=== PATIENT | male | born 1975 | race Caucasian/White ===

== ENCOUNTER → 2023-05-03 | Emergency (ER) | payer OTHER ==
[~2023-05-03] MED LIST: ACETAMINOPHEN 500 MG TAB ONE; HYDROCODONE/CHLORPHEN 5 ML/OSYR ONE
[2023-05-03 20:30] LABS: SARS-CoV-2 Antigen Rapid Res Negative (Negative)
--- NOTE | 2023-05-03 20:54 | RAD REPORT ---
EXAM DESCRIPTION: RAD - Chest Pa And Lat (2 Views) - 05/03/2023 8:47 pm CLINICAL HISTORY: Chest pain;Congestion;Cough COMPARISON: No comparisons FINDINGS: Lines: None. Lungs: No evidence of edema or pneumonia. Pleural: No significant pleural effusions or pneumothorax. Cardiac: The heart size is within normal limits. Mediastinum: Within normal limits. Bones: No acute fractures. Other: None IMPRESSION: No acute cardiopulmonary disease.
--- NOTE | 2023-05-03 21:19 | EDPHYS ---
Physician Documentation [facility] Name: Mo Cortez Age: 47 yrs Sex: Male : 1975 Arrival Date: 05/03/2023 Time: 19:20 Bed 12 Private MD: ED Physician Cosmo Kwok HPI: 05/03 20:24 This 47 yrs old Male presents to ER via Ambulatory with complaints of cough, back pain. sb4 20:28 low back pain x 1 week, productive cough x 3 days. no know fever. no GI symptoms. sb4 family with similar symptoms. taking OTC cold medications without significant relief. Historical: - Allergies: 19:30 Flexeril; rv - PMHx: 19:30 Hypertensive disorder; Diabetes mellitus; rv - PSHx: 19:30 BACK SURGERY; rv - Immunization history:: Adult Immunizations up to date. - Social history:: Smoking status: Patient reports the use of cigarette tobacco products, smokes one pack cigarettes per day. ROS: 20:28 Constitutional: Negative for fever, chills, and weight loss, sb4 20:28 Respiratory: Positive for cough, with yellow sputum, 20:28 Back: Positive for pain at rest, of the lumbar area, 20:28 All other systems are negative, Exam: 20:28 Constitutional: This is a well developed, well nourished patient who is awake, alert, sb4 and in no acute distress. Head/Face: Normocephalic, atraumatic. Eyes: Extra-ocular motions intact. Periorbital areas with no swelling, redness, or edema. ENT: Mucous membranes moist. Abdomen/GI: Soft, non-tender, no distension. Skin: Warm, dry with normal turgor. Normal color with no rashes, no lesions, and no evidence of cellulitis. MS/ Extremity: Pulses equal, no cyanosis. Neurovascular intact. Full, normal range of motion. Neuro: Awake and alert, GCS 15, oriented to person, place, time, and situation. Motor strength 5/5 in all extremities. Sensory grossly intact. 20:28 Cardiovascular: Rate: tachycardic, Rhythm: regular, Pulses: no pulse deficits are appreciated, 20:28 Respiratory: the patient does not display signs of respiratory distress, Respirations: normal, Breath sounds: no acute changes, deep breath elicits cough, Vital Signs: 19:29 BP 139 / 104; Pulse 109; Resp 19; Temp 98.5; Pulse Ox 100% ; Weight 97.52 kg; Height 6 rv ft. 1 in. ; 21:08 BP 117 / 87; Pulse 96; Resp 19; Temp 98.6; Pulse Ox 99% ; rv 19:29 Body Mass Index 28.37 (97.52 kg, 185.42 cm) rv Michelle Coma Score: 21:08 Eye Response: spontaneous(4). Motor Response: obeys commands(6). Verbal Response: rv oriented(5). Total: 15. MDM: 19:35 Patient medically screened. sb4 20:28 Differential Diagnosis: Bronchitis Influenza Upper Respiratory Infection Sinusitis sb4 Pneumonia. 21:34 Data reviewed: vital signs, nurses notes, lab test result(s), radiologic studies, and sb4 as a result, I will discharge patient. Care significantly affected by the following chronic conditions: Diabetes, Hypertension. Counseling: I had a detailed discussion with the patient and/or guardian regarding the historical points, exam findings, and any diagnostic results supporting the discharge/admit diagnosis, lab results, radiology results, to return to the emergency department if symptoms worsen or persist or if there are any questions or concerns that arise at home. 05/03 19:54 Order name: SARS RAPID; Complete Time: 20:32 sb4 05/03 19:54 Order name: Flu; Complete Time: 20:32 sb4 05/03 19:54 Order name: Chest Pa And Lat (2 Views) XRAY; Complete Time: 21:12 sb4 Administered Medications: 20:01 Drug: Tussionex Pennkinetic ER PO Suspension 5 ml PO once Route: PO; tm6 21:09 Follow up: Response: No adverse reaction rv 21:20 Drug: Acetaminophen PO 1000 mg PO once Route: PO; pf1 21:25 Follow up: Response: No adverse reaction; Marked relief of symptoms pf1 Disposition Summary: 05/03/23 21:18 Discharge Ordered Notes: Location: Home sb4 Problem: new sb4 Symptoms: have improved sb4 Condition: Stable sb4 Diagnosis - Acute bronchitis, unspecified sb4 Followup: sb4 - With: Emergency Department - When: As needed - Reason: Trouble breathing, Worsening of condition Discharge Instructions: - Discharge Summary Sheet sb4 - Acute Bronchitis, Adult sb4 Forms: - Thank You Letter sb4 - Prescription Opioid Use sb4 - Patient Portal Instructions sb4 - Leadership Thank You Letter sb4 Prescriptions: - Tessalon Perles 100 mg Oral Capsule - take 1 capsule ORAL route every 8 hours As needed; 15 capsule; Refills: 0, sb4 Product Selection Permitted - Prednisone 20 mg Oral Tablet - take 1 tablet ORAL route every 12 hours for 5 days; 10 tablet; Refills: 0, sb4 Product Selection Permitted Signatures: Dispatcher [employer] EDOK Primo Vidal, RN RN Belkis Jacobson PAAntonioC PA-C sb4 Jenniffer Holloway RN RN pf1 Lui Baker RN RN tm6
--- NOTE | 2023-05-03 21:19 | ER ---
Nurse's Notes [facility] Name: Mo Cortez Age: 47 yrs Sex: Male : 1975 Arrival Date: 05/03/2023 Time: 19:20 Bed 12 Private MD: Diagnosis: Acute bronchitis, unspecified Presentation: 05/03 19:29 Chief complaint: Patient states: cough, congestion, chills, pain started 2-3 days ago. rv denies N/V/D/C. persistent coughing making chronic back pain worse. Coronavirus screen: Client presents with at least one sign or symptom that may indicate coronavirus-19. Standard/surgical mask placed on the client. Provider contacted for isolation considerations. Ebola Screen: No symptoms or risks identified at this time. Initial Sepsis Screen: Does the patient meet any 2 criteria? No. Patient's initial sepsis screen is negative. Does the patient have a suspected source of infection? No. Patient's initial sepsis screen is negative. Risk Assessment: Do you want to hurt yourself or someone else? Patient reports no desire to harm self or others. Onset of symptoms was May 03, 2023. 19:29 Method Of Arrival: Ambulatory rv 19:29 Acuity: VIOLETTE 4 rv Triage Assessment: 19:32 General: Appears uncomfortable, Behavior is calm, cooperative. Pain: Complains of pain rv in back. Neuro: Level of Consciousness is awake, alert, obeys commands, Oriented to person, place, time, situation. Cardiovascular: Capillary refill < 3 seconds Patient's skin is warm and dry. Respiratory: Reports cough that is persistent Airway is patent Respiratory effort is even, unlabored. GI: No signs and/or symptoms were reported involving the gastrointestinal system. : No signs and/or symptoms were reported regarding the genitourinary system. Derm: Skin is intact. Historical: - Allergies: 19:30 Flexeril; rv - PMHx: 19:30 Hypertensive disorder; Diabetes mellitus; rv - PSHx: 19:30 BACK SURGERY; rv - Immunization history:: Adult Immunizations up to date. - Social history:: Smoking status: Patient reports the use of cigarette tobacco products, smokes one pack cigarettes per day. Screenin:32 [facility] ED Fall Risk Assessment (Adult) History of falling in the last 3 months, rv including since admission No falls in past 3 months (0 pts) Score/Fall Risk Level 0 - 2 = Low Risk Oriented to surroundings, Maintained a safe environment, Educated pt \T\ family on fall prevention, incl call for assistance when getting out of bed, Assessed \T\ reinforced patient's understanding of fall precautions. Abuse screen: Denies threats or abuse. Denies injuries from another. Nutritional screening: No deficits noted. Tuberculosis screening: No symptoms or risk factors identified. Assessment: 19:43 General: Appears uncomfortable, Behavior is calm, cooperative. Pain: Complains of pain tm6 in lumbar area, left low back and right low back Pain currently is 8 out of 10 on a pain scale. Quality of pain is described as sharp. Neuro: Level of Consciousness is awake, alert, obeys commands, Oriented to person, place, time, situation. Cardiovascular: Capillary refill < 3 seconds Patient's skin is warm and dry. Respiratory: Reports cough that is non-productive, pain with cough Airway is patent Respiratory effort is even, unlabored, Respiratory pattern is regular, symmetrical. GI: Abdomen is flat, non-distended. : No signs and/or symptoms were reported regarding the genitourinary system. EENT: Reports nasal congestion. Derm: No signs and/or symptoms reported regarding the dermatologic system. Musculoskeletal: Reports pain in back. Vital Signs: 19:29 BP 139 / 104; Pulse 109; Resp 19; Temp 98.5; Pulse Ox 100% ; Weight 97.52 kg; Height 6 rv ft. 1 in. ; 21:08 BP 117 / 87; Pulse 96; Resp 19; Temp 98.6; Pulse Ox 99% ; rv 19:29 Body Mass Index 28.37 (97.52 kg, 185.42 cm) rv Michelle Coma Score: 21:08 Eye Response: spontaneous(4). Motor Response: obeys commands(6). Verbal Response: rv oriented(5). Total: 15. ED Course: 19:24 Patient arrived in ED. gm2 19:25 Belkis Lynn PA-C is PHCP. sb4 19:25 Cosmo Kwok MD is Attending Physician. sb4 19:30 Triage completed. rv 19:32 Arm band placed on right wrist. rv 19:32 Patient has correct armband on for positive identification. Client placed on continuous rv cardiac and pulse oximetry monitoring. NIBP monitoring applied. 19:32 No provider procedures requiring assistance completed. rv 19:43 Provided Education on: plan of care. Door closed. Noise minimized. Lights dimmed. Warm tm6 blanket given. 19:55 Lui Baker, RN is Primary Nurse. tm6 20:01 Flu Sent. tm6 20:01 SARS RAPID Sent. tm6 20:48 Chest Pa And Lat (2 Views) XRAY In Process Unspecified. EDMS 21:26 Patient did not have IV access during this emergency room visit. rv Administered Medications: 20:01 Drug: Tussionex Pennkinetic ER PO Suspension 5 ml PO once Route: PO; tm6 21:09 Follow up: Response: No adverse reaction rv 21:20 Drug: Acetaminophen PO 1000 mg PO once Route: PO; pf1 21:25 Follow up: Response: No adverse reaction; Marked relief of symptoms pf1 Medication: 19:32 VIS not applicable for this client. rv Outcome: 21:18 Discharge ordered by MD. sb4 21:26 Discharged to home ambulatory, rv 21:26 Condition: good 21:26 Discharge instructions given to patient, Instructed on discharge instructions, follow up and referral plans. Demonstrated understanding of instructions, follow-up care, medications, Prescriptions given X 2, 21:26 Patient left the ED. rv Signatures: Dispatcher [employer] EDNV Primo Vidal RN RN rv Belkis Lynn, PA-C PA-C sb4 Jenniffer Holloway RN RN pf1 Allie Barrientos gm2 Lui Baker, RN RN tm6 Corrections: (The following items were deleted from the chart) 19:32 19:29 Chief complaint: Patient states: cough, congestion, chills, pain started 2-3 days rv ago. denies N/V/D/C. rv
[2023-05-03 21:39] VITALS: BP 117/87; TEMP 98.6; O2SAT 99
== END ==
LOC: ER 19:20
DX: J20.9 Acute bronchitis, unspecified (principal); Z11.52 Encounter for screening for COVID-19; F17.210 Nicotine dependence, cigarettes, uncomplicated; Z88.8 Allergy status to other drugs, medicaments and biological substances
CPT/HCPCS: 36415; 71046; 87804; 87811; 99284

== ENCOUNTER 2024-04-27 13:14 | Emergency (ER) | payer OTHER ==
[2024-04-27] MEDS ORDERED: DIPHENHYDRAMINE 50 MG/ML VIAL ONE (13:49)
[2024-04-27] MEDS ORDERED: KETOROLAC 30 MG/ML INJ ONE (13:49)
[2024-04-27] MEDS ORDERED: NA CHLORIDE 0.9% 1,000 ML ONE (13:50)
[2024-04-27] MEDS ORDERED: METOCLOPRAMIDE 10 MG/2mL INJ ONE (13:50)
[2024-04-27 13:55] LABS: Absolute Basophils 0.1 K/uL (0-0.5); Absolute Eosinophils 0.3 K/uL (0-0.5); Absolute Lymphocytes (CBC) 3.4 K/uL (0.7-4.9); Absolute Monocytes 0.7 K/uL (0.1-1.3); Absolute Neutrophil 4.7 K/uL (1.8-8.0); Basophils % 1.3 % (0-1.3); Hematocrit 46.2 % (39.6-49.0); Lymphocytes % 36.7 % (15.3-44.8); MCH 30.7 pg (27.0-35.0); MCHC 34.6 g/dL (32.0-36.0); MCV 88.8 fL (80-100); MPV 9.5 fL (7.6-11.3); Platelets 297 thou/uL (152-406); RBC Red Blood Cell Count 5.21 M/uL (4.33-5.43); Red Cell Distribution Width 13.1 % (12.1-15.2)
[2024-04-27 14:07] LABS: Anion Gap 7.6 mEq/L (5.0-15.0); Potassium 3.6 mEq/L (3.5-5.1); Troponin High Sensitivity 5.4 pg/mL (<58.9)
--- NOTE | 2024-04-27 14:14 | RAD REPORT ---
EXAM: Chest Single View HISTORY: Congestion;Cough COMPARISON: 05/18/2023 FINDINGS: LUNGS/PLEURA: The lungs are clear. No pleural effusions or pneumothorax. No pulmonary edema. MEDIASTINUM: The mediastinal silhouette is within normal limits. CARDIAC: The cardiac silhouette is within normal limits. UPPER ABDOMEN: No significant abnormality. BONES: No acute abnormality. LINES/TUBES/OTHER: N/A IMPRESSION: No evidence of acute cardiopulmonary disease.
[2024-04-27 14:37] LABS: SARS-CoV-2 Antigen CONTROL BLUE LINE VIS/BG OK; SARS-CoV-2 Antigen Rapid Res Negative (Negative)
--- NOTE | 2024-04-27 15:25 | ER ---
Nurse's Notes [facility] Name: Mo Cortez Age: 48 yrs Sex: Male : 1975 Arrival Date: 04/27/2024 Time: 13:14 Bed 13 Private MD: Diagnosis: Viral infection, unspecified Presentation: 04/27 13:18 Chief complaint: Patient states: cough and congestion x 2 days ago. Pt c/o lower back aa5 pain, reports hx of back sx. 13:18 Acuity: VIOLETTE 3 aa5 13:18 Coronavirus screen: congestion, cough unrelated to allergies. Ebola Screen: Patient aa5 denies travel to an Ebola-affected area in the 21 days before illness onset. Initial Sepsis Screen: Does the patient meet any 2 criteria? HR > 90 bpm. Does the patient have a suspected source of infection? No. Patient's initial sepsis screen is negative. Risk Assessment: Do you want to hurt yourself or someone else? Patient reports no desire to harm self or others. Onset of symptoms was April 2024. 13:18 Method Of Arrival: Ambulatory aa5 Historical: - Allergies: 13:19 Flexeril; aa5 - PMHx: 13:19 diabetes mellitus; Hypertensive disorder; aa5 - PSHx: 13:19 back surgery; aa5 - Immunization history:: Adult Immunizations unknown. - Infectious Disease History:: Denies. - Social history:: Smoking status: Patient reports the use of cigarette tobacco products. Screenin:20 [facility] ED Fall Risk Assessment (Adult) History of falling in the last 3 months, ko1 including since admission No falls in past 3 months (0 pts) Confusion or Disorientation No (0 pts) Intoxicated or Sedated No (0 pts) Impaired Gait No (0 pts) Mobility Assist Device Used No (0 pt) Altered Elimination No (0 pt) Score/Fall Risk Level 0 - 2 = Low Risk Oriented to surroundings, Maintained a safe environment, Educated pt \T\ family on fall prevention, incl call for assistance when getting out of bed, Assessed \T\ reinforced patient's understanding of fall precautions, Hourly rounding (assess needs \T\ fall precautionary measures) done. Abuse screen: Denies threats or abuse. Denies injuries from another. Nutritional screening: No deficits noted. Tuberculosis screening: No symptoms or risk factors identified. Assessment: 14:20 General: Appears in no apparent distress. Behavior is calm, cooperative, appropriate ko1 for age. Pain: Complains of pain in back. Neuro: No deficits noted. Cardiovascular: Patient's skin is warm and dry. Respiratory: Airway is patent Breath sounds are clear bilaterally. GI: No deficits noted. No signs and/or symptoms were reported involving the gastrointestinal system. : No deficits noted. No signs and/or symptoms were reported regarding the genitourinary system. EENT: No deficits noted. No signs and/or symptoms were reported regarding the EENT system. Derm: No deficits noted. No signs and/or symptoms reported regarding the dermatologic system. Musculoskeletal: No deficits noted. No signs and/or symptoms reported regarding the musculoskeletal system. Vital Signs: 13:18 BP 145 / 106; Pulse 118; Resp 18 S; Temp 98.9(O); Pulse Ox 96% on R/A; Weight 105.69 kg aa5 (R); Height 6 ft. 2 in. (R); 14:20 BP 129 / 97; Pulse 97; Resp 15; Pulse Ox 95% on R/A; ko1 14:30 Pain 2/10; kb3 15:32 BP 135 / 93; Pulse 97; Resp 15; Pulse Ox 97% ; ko1 13:18 Body Mass Index 29.92 (105.69 kg, 187.96 cm) aa5 14:30 Pain Scale: Adult kb3 ED Course: 13:16 Patient arrived in ED. mr 13:17 Belkis Lynn PA-C is [facility]. sb4 13:17 Chris Butler MD is Attending Physician. sb4 13:18 Arm band placed on. aa5 13:20 Triage completed. aa5 13:28 Fariha Schneider, HEIDE is Primary Nurse. me1 13:39 Flu Sent. ko1 13:39 SARS RAPID Sent. ko1 13:40 Basic Metabolic Panel Sent. ko1 13:40 CBC with Diff Sent. ko1 13:40 Troponin HS Sent. ko1 13:42 Initial lab(s) drawn, by sc, sent to lab. Inserted saline lock: 20 gauge in left me1 antecubital area, using aseptic technique. 13:53 XRAY Chest (1 view) In Process Unspecified. EDMS 14:20 Patient has correct armband on for positive identification. Allergy band placed. Bed in ko1 low position. Call light in reach. Side rails up X 1. Provided Education on: meds. Pulse ox on. NIBP on. Door closed. Noise minimized. Lights dimmed. Warm blanket given. Pillow given. 15:32 No provider procedures requiring assistance completed. IV discontinued, intact, ko1 bleeding controlled, No redness/swelling at site. Pressure dressing applied. Administered Medications: 13:58 Drug: NS 0.9% IV 1000 ml IV at 1000 ml once; to be given as a bolus over 60 minutes ko1 Route: IV; Rate: 1000 ml; Site: left antecubital; 15:32 Follow up: Response: No adverse reaction; IV Status: Completed infusion; IV Intake: ko1 1000ml 13:58 Drug: Ketorolac IVP 30 mg IVP once Route: IVP; Site: left antecubital; ko1 14:13 Follow up: Response: No adverse reaction ko1 13:58 Drug: metoCLOPramide IVP 10 mg IVP once; over 1 to 2 minutes Route: IVP; Site: left ko1 antecubital; 14:13 Follow up: Response: No adverse reaction ko1 13:58 Drug: diphenhydrAMINE IVP 25 mg IVP once Route: IVP; Site: left antecubital; ko1 14:13 Follow up: Response: No adverse reaction ko1 Medication: 14:20 VIS not applicable for this client. ko1 Intake: 15:32 IV: 1000ml; Total: 1000ml. ko1 Outcome: 15:24 Discharge ordered by . sb4 15:39 Discharged to home ambulatory, ko1 15:39 Condition: stable 15:39 Discharge instructions given to patient, Instructed on discharge instructions, follow up and referral plans. medication usage, Demonstrated understanding of instructions, follow-up care, medications, Prescriptions given X 1, 15:40 Patient left the ED. ko1 Signatures: Dispatcher [employer] EDMO ArnoldShima, Reg Reg mr McclendonRose, RN RN aa5 Shannan Pavon, RN RN kb3 Meme Williamson RN RN ko1 Belkis Lynn, PA-C PA-C sb4 Fariha Schneider, RN RN me1 Corrections: (The following items were deleted from the chart) 15:38 14:10 Pain 2/10, Adult; kb3 kb3
--- NOTE | 2024-04-27 15:25 | EDPHYS ---
Physician Documentation [facility] Name: Mo Cortez Age: 48 yrs Sex: Male : 1975 Arrival Date: 04/27/2024 Time: 13:14 Bed 13 Private MD: ED Physician Chris Butler HPI: 04/27 13:21 This 48 yrs old Male presents to ER via Ambulatory with complaints of Cough, sb4 Congestion, Back Pain. 13:21 patient reports cough, congestion, headache, and low back pain x 2 days. states family sb4 members have similar symptoms. no reported fever. denies GI symptoms. states family members are sick with similar symptoms. Historical: - Allergies: 13:19 Flexeril; aa5 - PMHx: 13:19 diabetes mellitus; Hypertensive disorder; aa5 - PSHx: 13:19 back surgery; aa5 - Immunization history:: Adult Immunizations unknown. - Infectious Disease History:: Denies. - Social history:: Smoking status: Patient reports the use of cigarette tobacco products. ROS: 13:21 Constitutional: Negative for fever, chills, and weight loss, sb4 13:21 ENT: Positive for sinus congestion, 13:21 Respiratory: Positive for cough, 13:21 Back: Positive for pain at rest, 13:21 Neuro: Positive for headache, 13:21 All other systems are negative, Exam: 13:22 Head/Face: Normocephalic, atraumatic. Eyes: Extra-ocular motions intact. Periorbital sb4 areas with no swelling, redness, or edema. ENT: Mucous membranes moist. Respiratory: No increased work of breathing, no retractions or nasal flaring. Abdomen/GI: Soft, non-tender, no distension. Skin: Warm, dry with normal turgor. Normal color with no rashes, no lesions, and no evidence of cellulitis. 13:22 Constitutional: The patient appears alert, awake, obviously ill, uncomfortable, 13:22 Cardiovascular: Rate: tachycardic, Rhythm: regular, 13:22 Respiratory: Breath sounds: are clear throughout, Vital Signs: 13:18 BP 145 / 106; Pulse 118; Resp 18 S; Temp 98.9(O); Pulse Ox 96% on R/A; Weight 105.69 kg aa5 (R); Height 6 ft. 2 in. (R); 14:20 BP 129 / 97; Pulse 97; Resp 15; Pulse Ox 95% on R/A; ko1 14:30 Pain 2/10; kb3 15:32 BP 135 / 93; Pulse 97; Resp 15; Pulse Ox 97% ; ko1 13:18 Body Mass Index 29.92 (105.69 kg, 187.96 cm) aa5 14:30 Pain Scale: Adult kb3 MDM: 13:18 Medical Screening Exam initiated sb4 15:15 Data reviewed: vital signs, nurses notes, lab test result(s), radiologic studies, and sb4 as a result, I will discharge patient. Counseling: I had a detailed discussion with the patient and/or guardian regarding the historical points, exam findings, and any diagnostic results supporting the discharge/admit diagnosis, lab results, radiology results, the need for outpatient follow up, for definitive care, to return to the emergency department if symptoms worsen or persist or if there are any questions or concerns that arise at home. 04/27 13:21 Order name: Basic Metabolic Panel; Complete Time: 14:07 sb4 04/27 13:21 Order name: CBC with Diff; Complete Time: 13:58 sb4 04/27 13:21 Order name: Troponin HS; Complete Time: 14:07 sb4 04/27 13:21 Order name: SARS RAPID; Complete Time: 14:40 sb4 04/27 13:21 Order name: Flu; Complete Time: 14:40 sb4 04/27 13:21 Order name: XRAY Chest (1 view); Complete Time: 14:14 sb4 04/27 13:21 Order name: Cardiac monitoring; Complete Time: 13:39 sb4 04/27 13:21 Order name: IV Saline Lock; Complete Time: 13:40 sb4 04/27 13:21 Order name: Labs collected and sent; Complete Time: 13:40 sb4 04/27 13:21 Order name: O2 Per Protocol; Complete Time: 13:40 sb4 04/27 13:21 Order name: O2 Sat Monitoring; Complete Time: 13:40 sb4 Administered Medications: 13:58 Drug: NS 0.9% IV 1000 ml IV at 1000 ml once; to be given as a bolus over 60 minutes ko1 Route: IV; Rate: 1000 ml; Site: left antecubital; 15:32 Follow up: Response: No adverse reaction; IV Status: Completed infusion; IV Intake: ko1 1000ml 13:58 Drug: Ketorolac IVP 30 mg IVP once Route: IVP; Site: left antecubital; ko1 14:13 Follow up: Response: No adverse reaction ko1 13:58 Drug: metoCLOPramide IVP 10 mg IVP once; over 1 to 2 minutes Route: IVP; Site: left ko1 antecubital; 14:13 Follow up: Response: No adverse reaction ko1 13:58 Drug: diphenhydrAMINE IVP 25 mg IVP once Route: IVP; Site: left antecubital; ko1 14:13 Follow up: Response: No adverse reaction ko1 Disposition: 17:25 Co-signature as Attending Physician, Chris Butler MD I reviewed the patient's care rt provided by the Advanced Practice Provider and agree with the diagnosis and treatment plan. Disposition Summary: 04/27/24 15:24 Discharge Ordered Notes: Location: Home sb4 Problem: new sb4 Symptoms: have improved sb4 Condition: Stable sb4 Diagnosis - Viral infection, unspecified sb4 Followup: sb4 - With: Emergency Department - When: As needed - Reason: Trouble breathing, Worsening of condition Discharge Instructions: - Discharge Summary Sheet sb4 - Viral Illness, Adult sb4 Forms: - Work release form ko1 - Patient Portal Instructions sb4 - Leadership Thank You Letter sb4 Prescriptions: - Prednisone 20 mg Oral Tablet - take 2 tablets ORAL route once daily for 5 days; 10 tablet; Refills: 0, Product sb4 Selection Permitted Signatures: Dispatcher [employer] EDoRse Bullard RN RN aa5 Meme Williamson RN RN ko1 Belkis Lynn PAOlivia PAOlivia sb4 Chris Butler MD MD rt Corrections: (The following items were deleted from the chart) 13:21 13:21 BASIC METABOLIC PANEL+C.LAB.BRZ ordered. EDMS EDMS 13:21 13:21 CBC+H.LAB.BRZ ordered. EDMS EDMS 13:21 13:21 Troponin High Sensitivity+C.LAB.BRZ ordered. EDMS EDMS 13:21 13:21 SARS-COV-2 Antigen Rapid+I.LAB.BRZ ordered. EDMS EDMS 13:21 13:21 Influenza Screen (A \T\ B)+BA.LAB.BRZ ordered. EDMS EDMS
[2024-04-27 16:55] VITALS: TEMP 98.9
[2024-04-27 16:58] VITALS: BP 135/93; O2SAT 97
== END 2024-04-27 15:40 | disposition home or self-care (01) ==
LOC: ER 13:14
DX: B34.9 Viral infection, unspecified (principal); Z11.52 Encounter for screening for COVID-19; Z72.0 Tobacco use
CPT/HCPCS: 85025; 80048; 36415; 84484; 87804 ×2; 71045; 87811; J2765; J1200; J7030; 96361; 96374; 96375; 99284